=== PATIENT | male | born 1985 | race Caucasian/White ===

== ENCOUNTER 2020-03-09 05:42 | Outpatient (CLI) | payer OTHER ==
[~2020-03-09] VITALS: Ht 165 cm; Wt 124.5 kg
[~2020-03-09 05:42] MED LIST: SULF1TAB38
[2020-03-10] MEDS ORDERED: HYDR-4226 PO (12:20)
== END 2020-03-09 10:58 | disposition home or self-care (01) ==
LOC: PREOP 05:42
PROVIDERS: ATTEND Surgery
DX: Z01.818 Encounter for other preprocedural examination (principal)

== ENCOUNTER 2020-03-10 09:41 | Day surgery (SDC) | payer OTHER ==
[~2020-03-10] VITALS: Ht 165 cm; Wt 123.3 kg
[2020-03-10] VITALS (11 sets, daily range): BP systolic 104–133; BP diastolic 63–101
[2020-03-10] MEDS ORDERED: ceFAZolin INJECTION 1,000 MG in WATER (STERILE) FOR INJECTION 10 ML IV ONE (10:00)
[2020-03-10] MEDS: LACTATED RINGERS 1,000 ML IV PRN ×2 (10:08→12:00)
[2020-03-10 10:16] LABS: BASOPHILS # (AUTO) 0.1 10^3/uL (0.0-0.1); BASOPHILS % (AUTO) 0 % (0-10); EOSINOPHILS # (AUTO) 0.2 10^3/uL (0.0-0.3); EOSINOPHILS % (AUTO) 2 % (0-10); HEMATOCRIT 48 % (40-54); HEMOGLOBIN 15.9 G/DL (13.3-17.7); LYMPHOCYTES # (AUTO) 2.6 X 10^3 (1.0-4.0); LYMPHOCYTES % (AUTO) 22 % (12-44); MEAN CORPUSCULAR HEMOGLOBIN 30 PG (25-34); MEAN CORPUSCULAR HGB CONC 33 G/DL (32-36); MEAN CORPUSCULAR VOLUME 90 FL (80-99); MONOCYTES # (AUTO) 0.9 X 10^3 (0.0-1.0); MONOCYTES % (AUTO) 8 % (0-12); NEUTROPHILS # (AUTO) 7.8 X 10^3 (1.8-7.8); NEUTROPHILS % (AUTO) 68 % (42-75); PLATELET COUNT 269 10^3/uL (130-400); WHITE BLOOD COUNT 11.5 10^3/uL (4.3-11.0)
--- NOTE | 2020-03-10 10:39 | Progress Note-Pre Operative ---
Pre-Operative Progress Note H&P Reviewed The H&P was reviewed, patient examined and no changes noted. Time Seen by Provider: 10:37 Date H&P Reviewed: Mar 10, 2020 Time H&P Reviewed: 10:38 Pre-Operative Diagnosis: Incarcerated Umbilical Hernia ADRIAN CONRAD DO Mar 10, 2020 10:39
[2020-03-10] MEDS ORDERED: BUP/EPI 0.5% 1:200,000 (SENSORCAINE) 30 ML VIAL ONE (10:59)
[2020-03-10] MEDS ORDERED: ONDANSETRON 4 MG/2 ML (SDV) Z0FRAN ONE (11:02)
[2020-03-10] MEDS ORDERED: proPOfol 200 MG/20 ML (DIPRIVAN) VIAL IV ONE (11:02)
[2020-03-10] MEDS ORDERED: MIDAZOLAM 2 MG/2 ML (VERSED) VIAL ONE (11:02)
[2020-03-10] MEDS ORDERED: ROCURONIUM 10 MG/ML 5 ML SYRINGE IV ONE (11:02)
[2020-03-10] MEDS ORDERED: LIDOCAINE PF 2% 5 ML (XYLOCAINE) VIAL ONE (11:02)
[2020-03-10] MEDS ORDERED: SEVOFLURANE (ULTANE) 15 ML INHAL SOLN ONE ×2 (11:03→12:27)
[2020-03-10] MEDS ORDERED: fentaNYL INJECTION 100 MCG/2 ML AMP ONE (11:03)
[2020-03-10] MEDS ORDERED: NEOSTIGMINE 3 MG/3 ML VIAL ONE (11:58)
[2020-03-10] MEDS ORDERED: GLYCOPYRROLATE 0.2 MG/ML (ROBINUL) 2 ML VIAL ONE (11:58)
[2020-03-10] MEDS ORDERED: HYDROmorphone 2 MG/ML VIAL (DILAUDID) ONE (12:04)
--- NOTE | 2020-03-10 12:19 | Progress Note-Post Operative ---
Post-Operative Progess Note Surgeon (s)/Fur Cutting Machine Operator (s) Surgeon ADRIAN CONRAD DO Fur Cutting Machine Operator: Dayday Pre-Operative Diagnosis Incarcerated Umbilical Hernia Post-Operative Diagnosis same Procedure & Operative Findings Date of Procedure 03/10/20 Procedure Performed/Findings PROCEDURE: Laparoscopic Umbilical hernia repair with mesh. COMPLICATIONS: None. INDICATIONS: The patient is a 34, male with an incarcerated umbilical hernia, which has continued to increase in size and cause pain. The patient was explained the risk and benefits of the procedure and wished to proceed with the procedure. Consent was signed on the chart. DESCRIPTION OF PROCEDURE: The patient was taken into the operating suite, prepped and draped in sterile fashion. Surgical pause was performed. Local anesthetic was infiltrated in left upper quadrant. A #11 blade scalpel was used to make a small skin incision. Cautery was used to dissect down to the fascia, which was then scored and divided the muscle, went through the posterior sheath and a balloon trocar was inserted into the abdomen. The abdomen was then insufflated. [findings] A 5 mm trocar was placed in the right lower quadrant and a 5 mm trocar was placed in left lower quadrant. The defect was less than 2cm so elected not to close. Echo Ventralight mesh was then inserted in the abdomen grabbed through the stab incision. The balloon was inflated on the mesh. Circumferential tacks were placed with a SecureStrap Tacker. The balloon was then removed and inner crown was created as well. The mesh was tacked with pressure being decreased. The 12 mm fascial defect was then closed using 0 Vicryl. The abdomen was then desufflated,the trocars were removed. The skin was then closed using 4-0 Monocryl in a running subcuticular fashion. The abdomen was washed and dried and Skin Affix was placed over the incisions. The patient tolerated procedure well without any complications. She was taken to recovery room in stable condition. Anesthesia Type GET Estimated Blood Loss Estimated blood loss (mL): scant Specimens/Packing Specimens Removed hernia contents ADRIAN CONRAD DO Mar 10, 2020 12:19
[2020-03-10] MEDS ORDERED: HYDR-4226 PO (12:20)
--- NOTE | 2020-03-10 12:21 | Discharge Inst-Surgical ---
Discharge Inst-Surgical Depart Medication/Instructions New, Converted or Re-Newed RX: RX Given to Pt/Family Patient Instructions Follow up Appt: Make appointment for 1 week. [phone] Instructions: No lifting greater than 20 pounds. No strenuous activity. May shower in 24 hours, no tub bath or soaking. Use incentive spirometer at home as directed. No Smoking Skin/Wound Care: May remove bandages in am. You need to leave the Dermabond on incision it will fall off on it's own. Symptoms to Report: Appetite Changes, Extremity Discoloration, Numbness/Tingling, Swelling Increased, Bleeding Excessive, Eyesight Changes, Pain Increased, Urine Color Change, Constipation(Persistent), Fever over 101 degree F, Pain/Pressure in chest, Urinating Difficulty, Cough Up/Vomit Blood, Heart Beat Irreg/Pounding, Pain/Pressure in jaw, Cramps in feet or legs, Lightheadedness, Pain/Pressure in shoulder, Diarrhea(Persistent), Memory Changes Suddenly, Questions/Concerns, Weight gain consecutive days, Dizziness/Fainting, Nausea/Vomiting, Shortness of Breath, Weight gain over 2 pounds If questions or concerns contact your physician Or seek help at emergency department. Activity Activity as Tolerated: Yes Activity Instructions: Avoid Stress to Incision Driving Instructions: No Driving/Refer to Dr. Oliveira Discharge Diet: No Restrictions Diet After 24 Hours: Clear Liquid if Nauseous If Any Problems/Questions/Issu: Contact Your Physician, Go to Emergency Room Skin/Wound Care Infection Signs and Symptoms: Increased Redness, Foul Odor of Wound, Increased Drainage, Skin Itchy or Has a Rash, Increased Swelling, Temperature Above 101 F Wound Care Comment: Heating pad to shoulder or neck tonight for pain Bathing Instructions: Shower Stitches/Lynnette/Dermabond Dis: Dermabond Ice Pack: Ice On and Off Site ADRIAN CONRAD DO Mar 10, 2020 12:21
[2020-03-10] MEDS ORDERED: ONDANSETRON 4 MG/2 ML (SDV) Z0FRAN IVP PRN (12:45)
[2020-03-10] MEDS ORDERED: morphine INJ 10 MG/ML 1ML (SYR OR VIAL) IVP ONE (12:45)
[2020-03-10] MEDS ORDERED: HYDROcodone/APAP 5 MG/325 MG (LORTAB) TAB ONE (14:16)
== END 2020-03-10 14:50 | disposition home or self-care (01) ==
LOC: SDC 09:41
PROVIDERS: ATTEND Surgery
DX: K42.0 Umbilical hernia with obstruction, without gangrene (principal); I10 Essential (primary) hypertension; F17.210 Nicotine dependence, cigarettes, uncomplicated; E66.01 Morbid (severe) obesity due to excess calories; Z68.42 Body mass index [BMI] 45.0-49.9, adult; Z79.899 Other long term (current) drug therapy; Z88.8 Allergy status to other drugs, medicaments and biological substances; Z80.9 Family history of malignant neoplasm, unspecified
CPT/HCPCS: 49653; 85025; 87081; 88302; 94664; C1781; 36415

== ENCOUNTER 2022-05-10 12:03 | Emergency (ER) | payer SELFPAY ==
[~2022-05-10] VITALS: Ht 157 cm; Wt 129.0 kg
[~2022-05-10 12:03] MED LIST changes: +HYDR-4226 PO
--- NOTE | 2022-05-10 12:49 | ED Chest Pain ---
General Chief Complaint: Chest Pain Stated Complaint: PREVIOUS CHEST TIGHTNESS Nursing Triage Note: PT ARRIVED WITH COMPLAINTS OF CHEST PRESSURE AND RIGHT ARM TINGLING SUNDAY. STATES HE CALLED THE CLINIC ON SUNDAY AND THEY CALLED HIM BACK TODAY AND TOLD HIM TO COME TO THE ER. PT DENIES CHEST PAIN AT THIS TIME. (BETO OCAMPO APRN) History of Present Illness Date Seen by Provider: May 10, 2022 Time Seen by Provider: 12:49 Initial Comments Patient presents to the emergency department for chest pressure and right arm tingling that happened on Sunday. Called [facility] clinic on Sunday and the clinic called back today and told him to come to the emergency department. Is not currently having chest pain at this time or the arm tingling. Just came here to get evaluated because the clinic told him too. Timing/Duration: resolved prior to arrival Radiation: arms (right) Activities at Onset: none Associated Symptoms: No abdominal pain, No back pain, No dizziness, No nausea/vomiting, No shortness of breath (BETO OCAMPO APRN) Allergies and Home Medications Allergies Coded Allergies: levofloxacin (Verified Allergy, Unknown, 03/10/20) STATES POSSIBLY THIS MEDICATION BUT NOT SURE. WHATEVER MEDICATION ONLY GAVE HIM A MILD RASH Patient Home Medication List Home Medication List Reviewed: Yes (BETO OCAMPO APRN) Hydrocodone/Acetaminophen (Hydrocodone/Acetaminophen 5 MG/325 MG TAB) 1 Each Tablet, 1 TAB PO Q6H Prescribed by: ADRIAN CONRAD on 03/10/20 1220 Review of Systems Review of Systems Constitutional: No chills, No dizziness, No fever EENTM: No Symptoms Reported Respiratory: Denies Cough, Denies Shortness of Air Cardiovascular: Chest Pain; Denies Irregular Heart Rate, Denies Lightheadedness, Denies Palpitations, Denies Syncope Gastrointestinal: Denies Nausea, Denies Vomiting Musculoskeletal: joint pain (right arm tingling) Skin: no symptoms reported Psychiatric/Neurological: Denies Headache, Denies Numbness; Tingling (right arm); Denies Tremors (BETO OCAMPO APRN) All Other Systems Reviewed Negative Unless Noted: Yes (BETO OCAMPO APRN) Past Zscpilb-Bgeupl-Fthwnt Hx Patient Social History Tobacco Use?: Yes Smokeless Tobacco Frequency: Current Everyday User Substance use?: Yes Substance type: Marijuana Alcohol Use?: No (BETO OCAMPO APRN) Seasonal Allergies Seasonal Allergies: Yes (BETO OCAMPO APRN) Past Medical History Surgeries: Yes (BMT) Respiratory: No Currently Using CPAP: No Currently Using BIPAP: No Cardiac: No Neurological: No Reproductive Disorders: No Sexually Transmitted Disease: No HIV/AIDS: No Genitourinary: No Gastrointestinal: Yes (UMBILICAL HERNIA) Musculoskeletal: No Endocrine: No HEENT: Yes (GLASSES) Loss of Vision: Denies Hearing Impairment: Denies Cancer: No Psychosocial: No Integumentary: No Blood Disorders: No Adverse Reaction/Blood Tranf: No (N/A) (BETO OCAMPO APRN) Family Medical History Reviewed Nursing Family Hx (BETO OCAMPO APRN) Physical Exam Vital Signs Vital Signs - First Documented 05/10/22 12:08 Temp 36.3 Pulse 102 Resp 16 B/P (MAP) 177/98 (124) Pulse Ox 97 O2 Delivery Room Air (MARQUEZ MASON MD) Vital Signs Capillary Refill : Less Than 3 Seconds (BETO OCAMPO APRN) Height, Weight, BMI Height: '" Weight: lbs. oz. kg; 52.00 BMI Method: General Appearance: No Apparent Distress, WD/WN Neck: Full Range of Motion, Normal Inspection, Non Tender, Supple Respiratory: Chest Non Tender, Lungs Clear, Normal Breath Sounds, No Accessory Muscle Use, No Respiratory Distress Cardiovascular: Regular Rate, Rhythm, No Edema Gastrointestinal: Normal Bowel Sounds, Non Tender, Soft Neurologic/Psychiatric: Alert, Oriented x3 Skin: Normal Color, Warm/Dry (BETO OCAMPO APRN) Progress/Results/Core Measures Results/Orders Lab Results Laboratory Tests Test 05/10/22 12:40 Range/Units White Blood Count 14.1 H 4.3-11.0 10^3/uL Red Blood Count 4.98 4.30-5.52 10^6/uL Hemoglobin 15.0 13.3-17.7 g/dL Hematocrit 46 40-54 % Mean Corpuscular Volume 92 80-99 fL Mean Corpuscular Hemoglobin 30 25-34 pg Mean Corpuscular Hemoglobin Concent 33 32-36 g/dL Red Cell Distribution Width 13.5 10.0-14.5 % Platelet Count 235 130-400 10^3/uL Mean Platelet Volume 10.3 9.0-12.2 fL Immature Granulocyte % (Auto) 1 % Neutrophils (%) (Auto) 68 42-75 % Lymphocytes (%) (Auto) 23 12-44 % Monocytes (%) (Auto) 6 0-12 % Eosinophils (%) (Auto) 1 0-10 % Basophils (%) (Auto) 1 0-10 % Neutrophils # (Auto) 9.7 H 1.8-7.8 10^3/uL Lymphocytes # (Auto) 3.2 1.0-4.0 10^3/uL Monocytes # (Auto) 0.9 0.0-1.0 10^3/uL Eosinophils # (Auto) 0.2 0.0-0.3 10^3/uL Basophils # (Auto) 0.1 0.0-0.1 10^3/uL Immature Granulocyte # (Auto) 0.1 0.0-0.1 10^3/uL Neutrophils % (Manual) 70 % Lymphocytes % (Manual) 24 % Monocytes % (Manual) 4 % Eosinophils % (Manual) 2 % Basophils % (Manual) 0 % Band Neutrophils 0 % Blood Morphology Comment NORMAL Prothrombin Time 12.5 12.2-14.7 SEC INR Comment 0.9 0.8-1.4 Activated Partial Thromboplast Time 28 24-35 SEC Sodium Level 136 135-145 MMOL/L Potassium Level 4.0 3.6-5.0 MMOL/L Chloride Level 104 98-107 MMOL/L Carbon Dioxide Level 25 21-32 MMOL/L Anion Gap 7 5-14 MMOL/L Blood Urea Nitrogen 11 7-18 MG/DL Creatinine 0.70 0.60-1.30 MG/DL Estimat Glomerular Filtration Rate 124 BUN/Creatinine Ratio 16 Glucose Level 85 70-105 MG/DL Calcium Level 9.1 8.5-10.1 MG/DL Corrected Calcium 9.3 8.5-10.1 MG/DL Magnesium Level 1.6 1.6-2.4 MG/DL Total Bilirubin 0.6 0.1-1.0 MG/DL Aspartate Amino Transf (AST/SGOT) 20 5-34 U/L Alanine Aminotransferase (ALT/SGPT) 31 0-55 U/L Alkaline Phosphatase 82 40-136 U/L Myoglobin 69.5 10.0-92.0 NG/ML Troponin I < 0.028 <0.028 NG/ML B-Type Natriuretic Peptide < 10.0 <100.0 PG/ML Total Protein 7.2 6.4-8.2 GM/DL Albumin 3.7 3.2-4.5 GM/DL Lipase 5 L 8-78 U/L (MARQUEZ MASON MD) My Orders Orders - MARQUEZ MASON MD Ekg Tracing (05/10/22 12:24) (MARQUEZ MASON MD) Medications Given in ED Current Medications Medications Dose Ordered Sig/Indira Route Start Time Stop Time Status Last Admin Dose Admin Aspirin 324 mg ONCE ONCE PO 05/10/22 13:00 05/10/22 13:01 DC 05/10/22 13:18 324 MG (MARQUEZ MASON MD) Vital Signs/I&O 05/10/22 05/10/22 12:08 14:00 Temp 36.3 Pulse 102 92 Resp 16 20 B/P (MAP) 177/98 (124) 114/97 Pulse Ox 97 98 O2 Delivery Room Air Room Air (MARQUEZ MASON MD) Blood Pressure Mean: 124 Progress Progress Note : Progress Note Patient presented to the ER with chest pain and right arm tingling that he had on Sunday. Pain and tingling has since resolved but was told by [facility] to come here and get evaluated. Labs and radiology were reassuring. Instructed to follow up with PCP as needed. Reasons to return to the ER were discussed with patient. (BETO OCAMPO APRN) Initial ECG Impression Date: May 10, 2022 Initial ECG Impression Time: 12:31 Initial ECG Rhythm: Normal Sinus Initial ECG Intervals: Normal Initial ECG Impression: Normal (BETO OCAMPO APRN) Departure Impression Primary Impression: Atypical chest pain Disposition: HOME, SELF-CARE Condition: Stable Departure-Patient Inst. Decision time for Depature: 13:45 (BETO OCAMPO APRN) Referrals: [facility] (PCP/Family) Primary Care Physician Patient Instructions: Chest Pain (DC) Add. Discharge Instructions: 1. Home and rest. 2. Push fluids. 3. Alternate Tylenol/Ibuprofen as needed for pain. 4. Follow up with [facility] as needed. 5. Return here if worse or concerns. All discharge instructions reviewed with patient and/or family. Voiced understanding. Work/School Note: Work Release Form Date Seen in the Emergency Department: May 10, 2022 Return to Work: May 11, 2022 Restrictions: No Restrictions ATTENDING PHYSICIAN NOTE: I was physically present as attending physician in the emergency department during the care of this patient, but I was not directly involved in the decision making or delivery of care for this patient. (MARQUEZ MASON MD) BETO OCAMPO APRN May 10, 2022 12:49 MARQUEZ MASON MD May 10, 2022 19:52
[2022-05-10] MEDS ORDERED: ASPIRIN 81 MG CHEW (CHILDREN'S ASA) PO ONE (13:00)
[2022-05-10 13:04] LABS: BASOPHILS # (AUTO) 0.1 10^3/uL (0.0-0.1); BASOPHILS % (AUTO) 1 % (0-10); EOSINOPHILS # (AUTO) 0.2 10^3/uL (0.0-0.3); EOSINOPHILS % (AUTO) 1 % (0-10); HEMATOCRIT 46 % (40-54); LYMPHOCYTES # (AUTO) 3.2 10^3/uL (1.0-4.0); LYMPHOCYTES % (AUTO) 23 % (12-44); MEAN CORPUSCULAR HEMOGLOBIN 30 pg (25-34); MEAN CORPUSCULAR HGB CONC 33 g/dL (32-36); MEAN CORPUSCULAR VOLUME 92 fL (80-99); MEAN PLATELET VOLUME 10.3 fL (9.0-12.2); MONOCYTES # (AUTO) 0.9 10^3/uL (0.0-1.0); MONOCYTES % (AUTO) 6 % (0-12); NEUTROPHILS # (AUTO) 9.7 10^3/uL (1.8-7.8); NEUTROPHILS % (AUTO) 68 % (42-75); PLATELET COUNT 235 10^3/uL (130-400); WHITE BLOOD COUNT 14.1 10^3/uL (4.3-11.0)
[2022-05-10 13:09] LABS: INR 0.9 (0.8-1.4); PROTHROMBIN TIME PATIENT 12.5 SEC (12.2-14.7)
[2022-05-10 13:14] LABS: ALBUMIN 3.7 GM/DL (3.2-4.5); BILIRUBIN,TOTAL 0.6 MG/DL (0.1-1.0); CALCIUM 9.1 MG/DL (8.5-10.1); CREATININE SERUM 0.7 MG/DL (0.60-1.30); MAGNESIUM 1.6 MG/DL (1.6-2.4); TOTAL PROTEIN 7.2 GM/DL (6.4-8.2)
--- NOTE | 2022-05-10 13:24 | Diagnostic Imaging Report ---
INDICATION: Tingling, pain in the right arm. FINDINGS: There is no focal consolidation, failure, effusion or pneumothorax. Curvilinear radiopacity projects over the left midlung which may be overlying soft tissue foreign body. IMPRESSION: No acute appearing cardiopulmonary abnormality. Dictated by: Dictated on workstation # [id number]
[2022-05-10 13:38] LABS: BAND NEUTROPHILS 0 %; BASOPHILS % (MANUAL) 0 %; EOSINOPHILS % (MANUAL) 2 %; LYMPHOCYTES % (MANUAL) 24 %; MONOCYTES % (MANUAL) 4 %; NEUTROPHILS % (MANUAL) 70 %; RBC MORPH NORMAL
[2022-05-10 14:00] VITALS: BP 114/97
== END 2022-05-10 14:03 | disposition home or self-care (01) ==
LOC: EDUNIT# 12:03 → ER 12:07
DX: R07.89 Other chest pain (principal); F17.200 Nicotine dependence, unspecified, uncomplicated; Z28.310 Unvaccinated for COVID-19
CPT/HCPCS: 36415; 71045; 80053; 83690; 83735; 83874; 83880; 84484; 85007; 85027; 85610; 85730; 93005; 93041